=== PATIENT | female | born 1945 | race Caucasian/White ===

== ENCOUNTER → 2017-11-30 | Outpatient (CLI) | payer MEDICARE | END | disposition home or self-care (01) | LOC: RAH 09:53 | PROVIDERS: ATTEND Urology | DX: N13.2 Hydronephrosis with renal and ureteral calculous obstruction (principal); M47.896 Other spondylosis, lumbar region; K82.0 Obstruction of gallbladder | CPT/HCPCS: 74176 ==

== ENCOUNTER → 2018-09-01 | Outpatient (CLI) | payer MEDICARE | END | disposition home or self-care (01) | LOC: RAH 12:30 | PROVIDERS: ATTEND Urology | DX: N20.0 Calculus of kidney (principal); N13.1 Hydronephrosis with ureteral stricture, not elsewhere classified; N39.0 Urinary tract infection, site not specified | CPT/HCPCS: 74176 ==

== ENCOUNTER → 2020-05-30 | Outpatient (CLI) | payer MEDICARE | END | disposition home or self-care (01) | LOC: RAH 11:04 | PROVIDERS: ATTEND Internal Medicine | DX: N28.1 Cyst of kidney, acquired (principal); R31.21 Asymptomatic microscopic hematuria | CPT/HCPCS: 76770 ==

== ENCOUNTER → 2020-08-01 | Outpatient (CLI) | payer MEDICARE | END | disposition home or self-care (01) | LOC: SHCH 09:45 | PROVIDERS: ATTEND Internal Medicine Cardiovascular Disease | DX: I08.8 Other rheumatic multiple valve diseases (principal); E66.9 Obesity, unspecified; E78.5 Hyperlipidemia, unspecified; E11.9 Type 2 diabetes mellitus without complications; R55 Syncope and collapse | CPT/HCPCS: 93306; 93356 ==

== ENCOUNTER → 2020-12-18 | Outpatient (CLI) | payer OTHER | END | disposition home or self-care (01) | LOC: RAH 11:21 | PROVIDERS: ATTEND Internal Medicine Cardiovascular Disease | DX: Z13.6 Encounter for screening for cardiovascular disorders (principal) | CPT/HCPCS: 75571 ==

== ENCOUNTER → 2021-03-31 | Outpatient (CLI) | payer MEDICARE ==
[~2021-03-31] MED LIST: REGADENOSON 0.4 MG/5 ML PF SYG IVP SCH
== END | disposition home or self-care (01) ==
LOC: SHCH 09:22
PROVIDERS: ATTEND Internal Medicine Cardiovascular Disease
DX: I25.10 Atherosclerotic heart disease of native coronary artery without angina pectoris (principal); R06.02 Shortness of breath; R53.83 Other fatigue
CPT/HCPCS: 78452; 93017; 96374; A9500 ×2; J2785

== ENCOUNTER 2022-04-19 09:06 | Observation (INO) | payer MEDICARE ==
[~2022-04-19] VITALS: Ht 162.6 cm; Wt 76.2 kg
[2022-04-19 09:48] LABS: BASOPHILS % (AUTO) 0.2 % (0.0-5.0); EOSINOPHILS % (AUTO) 0.3 % (0.0-8.0); HEMATOCRIT 27.7 % (36-48); LYMPHOCYTES % (AUTO) 2.9 % (21.0-51.0); MEAN CORPUSCULAR HEMOGLOBIN 30.8 pg (27.0-33.0); MEAN CORPUSCULAR VOLUME 87.9 fL (79-99); MONOCYTES % (AUTO) 9.2 % (3.0-13.0); NEUTROPHILS % (AUTO) 86.6 % (40.0-77.0); PLATELET COUNT (AUTO) 143 K/uL (130-400); RED BLOOD CELL COUNT(AUTO) 3.15 MIL/uL (4.00-5.50); RED CELL DISTRIBUTION WIDTH 13.1 % (11.0-15.5); WHITE BLOOD COUNT (AUTO) 9.9 K/uL (4.8-10.8)
[2022-04-19 10:08] LABS: CREATININE 1.4 mg/dL (0.5-1.5); TOTAL PROTEIN, SERUM 6.8 g/dL (6.0-8.3)
[2022-04-19 10:23] LABS: POTASSIUM 2.8 mmol/L (3.5-5.1)
[2022-04-19] MEDS ORDERED: POTASSIUM BICARB/CIT AC 25 MEQ TABLET.EFF PO ONE (11:30)
[2022-04-19] MEDS ORDERED: MAGNESIUM 2GM PREMIX 50ML 50 ML IV ONE (12:30)
[2022-04-19] MEDS ORDERED: LIDOCAINE HCL-MPF 1% 2ML VIAL IV PRN (13:00)
[2022-04-19] MEDS ORDERED: POTASSIUM CHLORIDE 10% ELIXIR 20 MEQ/15 ML UDCUP PO PRN (13:00)
[2022-04-19] MEDS ORDERED: POTASSIUM CHLORIDE 10MEQ/100ML 100 ML IV PRN (13:00)
[2022-04-19] MEDS: 0.9%NACL 1000ML 1,000 ML IV SCH (13:10)
[2022-04-19] MEDS ORDERED: HYDR-4153 PO (14:46)
[2022-04-19] MEDS ORDERED: ROSU20TA31 PO (14:46)
[2022-04-19] MEDS ORDERED: GLIP5TAB11 PO (14:46)
[2022-04-19] MEDS ORDERED: MULT-1258 PO (14:46)
[2022-04-19] MEDS ORDERED: OLME40TA18 PO (14:46)
[2022-04-19] MEDS ORDERED: AMLO-258 PO (14:46)
[2022-04-19] MEDS ORDERED: ESCI5TAB16 PO (14:46)
[2022-04-19] MEDS ORDERED: CHOL100053 PO (14:46)
[2022-04-19] MEDS ORDERED: SEMA3TAB4 PO (14:46)
[2022-04-19] MEDS ORDERED: ASCO100031 PO (14:46)
[2022-04-19] MEDS ORDERED: FERS325 PO (14:46)
[2022-04-19] MEDS ORDERED: FENO145T26 PO (14:46)
[2022-04-19] MEDS ORDERED: CARV25TA PO (14:46)
[2022-04-19] MEDS ORDERED: VITAMIN B12 PO (14:46)
[2022-04-19] MEDS ORDERED: FOLI0.8C PO (14:46)
[2022-04-19] MEDS ORDERED: HYDR25TA PO (14:46)
[2022-04-19] MEDS: MAGNESIUM 2GM PREMIX 50ML 50 ML IV PRN ×2 (15:38→18:02)
[2022-04-19 15:58] LABS: APPEARANCE,URINE CLOUDY (CLEAR); BILIRUBIN,URINE NEGATIVE (NEGATIVE); COLOR,URINE LIGHT-YELLOW (YELLOW); GLUCOSE, URINE (UA) NEGATIVE (NEGATIVE); KETONES,URINE NEGATIVE (NEGATIVE); LEUKOCYTE ESTERASE ,URINE 500 Leu/uL (NEGATIVE); NITRATE,URINE NEGATIVE (NEGATIVE); OCCULT BLOOD,URINE NEGATIVE (NEGATIVE); PROTEIN,URINE 30 mg/dL (NEGATIVE); UROBILINOGEN,URINE 0.2 mg/dL (0.2-1.0)
[2022-04-19 16:06] LABS: BACTERIA,URINE MOD /HPF (None Seen); MUCUS,URINE RARE LPF (None Seen); SQUAMOUS EPITHELIAL CELL,UR RARE /HPF (0-2); WBC,URINE 26-50 /HPF (0-1)
[2022-04-19 22:17] VITALS: BP 144/58
[2022-04-19 23:49] LABS: CREATININE 1.4 mg/dL (0.5-1.5); MAGNESIUM 2.9 mg/dL (1.80-2.40)
[2022-04-20] VITALS: BP 148/58
[2022-04-20] MEDS: KCL 20 MEQ ERTAB PO PRN ×5 (00:04→10:21)
[2022-04-20] MEDS: 0.9%NACL 1000ML 1,000 ML IV SCH ×2 (00:14→09:23)
[2022-04-20 04:00] VITALS: BP 143/55
[2022-04-20 08:30] VITALS: BP 141/58
[2022-04-20 11:48] VITALS: BP 132/64
[2022-04-20 11:49] VITALS: BP 148/61
== END 2022-04-20 14:15 | disposition home or self-care (01) ==
LOC: EDH 09:06 → EDHIP 12:59 → 4DH 21:40
PROVIDERS: ADMIT Internal Medicine Hematology & Oncology; ATTEND Internal Medicine Hematology & Oncology
DX: R55 Syncope and collapse (principal); S00.03XA Contusion of scalp, initial encounter; E87.6 Hypokalemia; R79.89 Other specified abnormal findings of blood chemistry; E86.0 Dehydration; I95.9 Hypotension, unspecified; E11.9 Type 2 diabetes mellitus without complications; I10 Essential (primary) hypertension; E78.5 Hyperlipidemia, unspecified; E83.42 Hypomagnesemia; C50.919 Malignant neoplasm of unspecified site of unspecified female breast; Z85.3 Personal history of malignant neoplasm of breast; Z90.49 Acquired absence of other specified parts of digestive tract; Z79.899 Other long term (current) drug therapy; Z98.890 Other specified postprocedural states; Z90.10 Acquired absence of unspecified breast and nipple; W19.XXXA Unspecified fall, initial encounter; Y92.89 Other specified places as the place of occurrence of the external cause; Y93.89 Activity, other specified; Y99.8 Other external cause status
CPT/HCPCS: 96365; 96366; 99285; 83735 ×2; 84484; 80053; 83880; 85025; 87077; 87088; 87186; 81001; 36415 ×2; 71045; 70450; 72125; 78582; 93005; 96361; 84132; 82948 ×2; G0378 ×25; J3475 ×3; A9540; A9558; J3490; 80048

== ENCOUNTER 2022-12-12 12:22 | Emergency (ER) | payer MEDICARE ==
[~2022-12-12] VITALS: Ht 162.6 cm; Wt 78.7 kg
[~2022-12-12 12:22] MED LIST changes: +AMLO-258 PO; +ASCO100031 PO; +CARV25TA PO; +CHOL100053 PO; +ESCI5TAB16 PO; +FENO145T26 PO; +FERS325 PO; +FOLI0.8C PO; +GLIP5TAB15 PO; +HYDR-4153 PO; +HYDR25TA PO; +MULT-1258 PO; +OLME40TA18 PO; -REGADENOSON 0.4 MG/5 ML PF SYG IVP SCH; +ROSU20TA73 PO; +SEMA3TAB4 PO; +VITAMIN B12 PO
[2022-12-12] MEDS ORDERED: DIPH,PERTUSS(ACELL),TET VAC/PF 0.5 ML VIAL IM ONE (13:00)
[2022-12-12 13:20] LABS: BASOPHILS # (AUTO) 0.03 K/uL (0.00-0.20); BASOPHILS % (AUTO) 0.4 % (0.0-5.0); EOSINOPHILS # (AUTO) 0.11 K/uL (0.00-0.70); EOSINOPHILS % (AUTO) 1.6 % (0.0-8.0); HEMATOCRIT 30.4 % (36-48); IMMATURE GRANULOCYTE ABSOLUTE 0.04 K/uL (0-1); LYMPHOCYTES # (AUTO) 0.4 K/uL (1.0-4.8); LYMPHOCYTES % (AUTO) 6.3 % (21.0-51.0); MEAN CORPUSCULAR HEMOGLOBIN 30.6 pg (27.0-33.0); MEAN CORPUSCULAR HGB CONC 33.9 g/dL (32.0-36.0); MEAN CORPUSCULAR VOLUME 90.2 fL (79-99); MONOCYTES # (AUTO) 0.4 K/uL (0.1-1.0); MONOCYTES % (AUTO) 5.8 % (3.0-13.0); NEUTROPHILS # (AUTO) 5.9 K/uL (1.8-7.7); NEUTROPHILS % (AUTO) 85.3 % (40.0-77.0); PLATELET COUNT (AUTO) 148 K/uL (130-400); RED BLOOD CELL COUNT(AUTO) 3.37 MIL/uL (4.00-5.50); RED CELL DISTRIBUTION WIDTH 13.4 % (11.0-15.5); WHITE BLOOD COUNT (AUTO) 6.9 K/uL (4.8-10.8)
[2022-12-12 13:40] LABS: CREATININE 1.6 mg/dL (0.5-1.5); POTASSIUM 3.7 mmol/L (3.5-5.1)
[2022-12-12 13:45] LABS: ALBUMIN 3.4 g/dL (3.5-5.0); BILIRUBIN,TOTAL 0.4 mg/dL (0.2-1.0); TOTAL PROTEIN, SERUM 6.9 g/dL (6.0-8.3)
[2022-12-12 13:55] LABS: INR 1.03 (0.85-1.15); PROTHROMBIN TIME 11.9 SEC (9.6-11.6)
[2022-12-12 13:56] LABS: PARTIAL THROMBOPLASTIN TIME 26.5 SEC (26.3-35.5)
[2022-12-12] MEDS ORDERED: OCTYL 2-CYANOACRYLATE 1 EACH TP ONE (16:02)
[2022-12-12 16:31] VITALS: BP 168/60; PULSE 66; RESP 18; O2SAT 98
== END 2022-12-12 16:33 | disposition home or self-care (01) ==
LOC: EDH 12:22
DX: S01.01XA Laceration without foreign body of scalp, initial encounter (principal); I10 Essential (primary) hypertension; E78.00 Pure hypercholesterolemia, unspecified; Z79.899 Other long term (current) drug therapy; Z98.890 Other specified postprocedural states; W18.39XA Other fall on same level, initial encounter; Y93.89 Activity, other specified; Y92.89 Other specified places as the place of occurrence of the external cause; Y99.8 Other external cause status
CPT/HCPCS: 12001; 36415; 70450; 80053; 84484; 85025; 85610; 85730; 90471; 90715; 93005